=== PATIENT | male | born 1965 | race Caucasian/White ===

== ENCOUNTER → 2017-04-12 | Outpatient (CLI) | payer OTHER ==
--- NOTE | 2017-04-12 07:46 | DIAGNOSTIC IMAGING REPORT ---
MRI LUMBAR SPINE W/O CONTRAST CLINICAL HISTORY: Back pain with right lower extremity radiculopathy TECHNIQUE: Sagittal and axial T1, T2 and STIR images were obtained. COMPARISON STUDY: No previous studies for comparison. OBSERVATIONS: The vertebral bodies and posterior elements appear intact. There is no abnormal bony signal present to suggest a marrow replacement process. L1-2: No disc protrusions or extrusions. No evidence of spinal canal or neural foraminal compromise. L2-3: No disc protrusions or extrusions. No evidence of spinal canal or neural foraminal compromise. L3-4: There is a very mild circumferential disc bulge. There is no significant spinal or foraminal stenosis. L4-5: There is a mild circumferential disc bulge. There is a right foraminal disc protrusion which appears to abut the right L4 nerve root. L5-S1: No disc protrusions or extrusions. No evidence of spinal canal or neural foraminal compromise. The conus medullaris and cauda equina appear normal. IMPRESSION: 1. Soft tissue density in the right L4-5 neural foramen. This statistically represents a foraminal disc protrusion which appears to abut the right L4 nerve root. Electronically signed by: Watson Rush M.D. 04/12/2017 7:45 AM Dictated Date/Time: 04/12/2017 7:39 AM
== END | disposition home or self-care (01) ==
LOC: C.MRI 06:20
PROVIDERS: ATTEND Family Medicine
DX: M54.16 Radiculopathy, lumbar region (principal)